=== PATIENT | female | born 1950 | race Hispanic/Latino ===

== ENCOUNTER → 2022-06-04 | Outpatient (CLI) | payer MEDICARE ==
[~2022-06-04] MED LIST: ASPIRIN81 MG PO; BUSPIRONE HCL5 MG PO; CITALOPRAM HBR20 MG PO; FAMOTIDINE20 MG PO; FIBER LAX625 MG PO; FOLIC ACID0.8 MG PO; HYDROCORTISONE30 GM TOP; LISINOPRIL2.5 MG PO; MELOXICAM7.5 MG PO; METAMUCIL FIBE3.4 GM PO; MONTELUKAST SOD10 MG PO; SIMVASTATIN40 MG PO; SUCRALFATE1 GM PO; VITAMIN B-225 MG PO; VITAMIN D250 MCG PO
== END ==
LOC: DX 08:52
PROVIDERS: ATTEND Internal Medicine Gastroenterology
DX: R19.5 Other fecal abnormalities (principal)
CPT/HCPCS: 74250

== ENCOUNTER → 2025-01-02 | Day surgery (SDC) | payer MEDICARE ==
[2024-12-29 12:03] LABS: BASOPHILS % 0.5 % (0.0-1.0); EOSINOPHILS # (AUTO) 0.1 (0.0-0.4); EOSINOPHILS % 3.4 % (0.0-6.0); HEMATOCRIT 35.4 % (34.2-44.1); HEMOGLOBIN 11.5 g/dL (12.0-16.0); LYMPHOCYTES # (AUTO) 1.4 (1.0-3.2); LYMPHOCYTES % 34.5 % (18.0-39.1); MEAN CORPUSCULAR HEMOGLOBIN 28.8 pg (28-32); MEAN CORPUSCULAR HGB CONC 32.5 g/dL (31-35); MEAN CORPUSCULAR VOLUME 88.5 fL (81-99); MONOCYTES # (AUTO) 0.3 (0.2-0.8); MONOCYTES % 6.3 % (4.4-11.3); NEUTROPHILS # (AUTO) 2.3 (2.1-6.9); NEUTROPHILS % 55.1 % (38.7-80.0); PLATELET COUNT 169 x10e3/uL (140-360); RED CELL DISTRIBUTION WIDTH 12.5 % (11.7-14.4); WHITE BLOOD COUNT 4.12 x10e3/uL (4.8-10.8)
[~2025-01-02] MED LIST changes: +FENTANYL CITRATE/PF 100MCG/2 ML INJ ONE; +GLUCAGON FOR INJ 1 MG VIAL ONE; +HYOSCYAMINE SULFATE 0.5 MG/ML INJ ONE; +LIDOCAINE HCL 2% LOCAL INJ 5 ML SDV VIAL INJ ONE; +METOCLOPRAMIDE HCL 10 MG/2ML VIAL ONE; +ONDANSETRON HCL INJ 2MG/ML 2ML 2 MG/ML VIAL ONE; +PANTOPRAZOLE SO40 MG PO; +PROBIOTIC & AC1 EACH PO; +PROPOFOL IV EMULSION 50 ML IV ONE; +RYALTRIS 665-2529 GM; +TRAZODONE HCL50 MG PO
[2025-01-02] MEDS: LACTATED RINGER'S 1,000 ML ONE (07:51)
[2025-01-02 10:20] VITALS: BP 105/57; PULSE 94; RESP 16; TEMP 98.2; O2SAT 100
== END | disposition home or self-care (01) ==
LOC: OR 07:01
PROVIDERS: ATTEND Internal Medicine Gastroenterology
DX: Z09 Encounter for follow-up examination after completed treatment for conditions other than malignant neoplasm (principal); D12.2 Benign neoplasm of ascending colon; K63.5 Polyp of colon; K64.8 Other hemorrhoids; K62.5 Hemorrhage of anus and rectum; K21.00 Gastro-esophageal reflux disease with esophagitis, without bleeding; K22.10 Ulcer of esophagus without bleeding; K29.50 Unspecified chronic gastritis without bleeding; K44.9 Diaphragmatic hernia without obstruction or gangrene; R10.12 Left upper quadrant pain; I10 Essential (primary) hypertension; Z87.11 Personal history of peptic ulcer disease; E66.9 Obesity, unspecified; Z68.30 Body mass index [BMI] 30.0-30.9, adult; M54.50 Low back pain, unspecified; G89.29 Other chronic pain; F41.8 Other specified anxiety disorders; M19.91 Primary osteoarthritis, unspecified site; Z79.899 Other long term (current) drug therapy; Z79.82 Long term (current) use of aspirin
CPT/HCPCS: 36415; 43239; 45385; 85025; 93005; J1610; J1980; J2003; J2405; J2470; J2704; J2765; J3010; J7121; 45378